=== PATIENT | female | born 1955 | race Caucasian/White ===

== ENCOUNTER → 2018-11-28 | Outpatient (CLI) | payer MEDICARE ==
[~2018-11-28] MED LIST: HYDR-3720 PO
--- NOTE | 2018-11-28 14:07 | Diagnostic Imaging Report ---
EXAMINATION: Right knee at 01:39 p.m. INDICATION: Knee pain. FINDINGS: Three views were obtained. There is no fracture, dislocation, or acute bony abnormality evident. However, there is fairly severe narrowing of the medial compartment of the knee joint and at least moderate narrowing of the patellofemoral space. The lateral compartment is well maintained. The soft tissues are unremarkable. IMPRESSION: 1. There is no evidence for an acute bony abnormality. 2. There is degenerative disease involving the knee joint with the medial compartment most severely affected. Dictated by: Dictated on workstation # [id number]
--- NOTE | 2018-11-28 15:37 | Diagnostic Imaging Report ---
EXAMINATION: Lumbar spine. INDICATION: Back pain. FINDINGS: AP, lateral, spot lateral, and both oblique views were obtained. There are no prior studies available for comparison. The lateral view shows that there is fairly severe narrowing of the disc spaces at L1-L2 and L2-L3 and moderate narrowing of the disc spaces at L3-L4. The L4-L5 and L5-S1 levels are fairly well maintained. There is no fracture or acute bony abnormality evident. There is no sign of a paraspinal mass. There is mild symmetrical sclerosis of the sacroiliac joints. IMPRESSION: 1. There is no evidence for an acute bony abnormality. 2. There is degenerative disc and bony disease involving the lumbar spine with the L1-L2 and L2-L3 levels the most severely affected. 3. If there is clinical concern regarding spinal stenosis or nerve root encroachment, then MRI will be recommended for additional evaluation. Dictated by: Dictated on workstation # [id number]
== END ==
LOC: RAD 13:11
PROVIDERS: ATTEND Nurse Practitioner Family
DX: M17.11 Unilateral primary osteoarthritis, right knee (principal); M51.36 Other intervertebral disc degeneration, lumbar region; M89.9 Disorder of bone, unspecified
CPT/HCPCS: 72110; 73562

== ENCOUNTER → 2018-12-13 | Outpatient (CLI) | payer MEDICARE ==
--- NOTE | 2018-12-13 11:47 | Diagnostic Imaging Report ---
INDICATION: Screening for osteoporosis. COMPARISON: None. FINDINGS: There are no prior studies available for comparison. The bone mineral density of hips and spine was measured. The T score for the spine is -2.7. This value does indicate osteoporosis. The T score for the left femoral neck is -2.2 and the total T score for the left hip is -1.6. These values indicate osteopenia. The T score for the right femoral neck is -2.1 and the total T score for the right hip is -1.8. These values also fall within the range of osteopenia. AP Spine L1-L4: [BMD (g/cm2): 0.878] [T-Score: -2.7] [Z-Score: -2.3] [BMD Previous: N/A] [BMD % Change: N/A] LT Hip Neck: [BMD (g/cm2): 0.733] [T-Score: -2.2] [Z-Score: -1.5] LT Hip Total: [BMD (g/cm2):0.802] [T-Score:-1.6] [Z-Score: -1.3] [BMD Previous: N/A] [BMD % Change: N/A] RT Hip Neck: [BMD (g/cm2):0.742] [T-Score:-2.1] [Z-Score:-1.4] RT Hip Total: [BMD (g/cm2):0.775] [T-score:-1.8] [Z-Score:-1.5] [BMD Previous:N/A] [BMD % Change:N/A] *Indicates significant change from prior examination based on 95% confidence level. World Health Organization criteria for BMD interpretation classify patients as Normal (T-score at or above -1.0), Osteopenic (T-score between -1.0 and -2.5) or Osteoporotic (T-score at or below -2.5). LIMITATIONS AND MODIFICATION: None. FRACTURE RISK (FRAX SCORE): The ten year probability of (%): Major Osteoporotic Fracture: [9.5] Hip Fracture: [1.5] IMPRESSION: 1. The bone mineral density of the spine falls within the range of osteoporosis. The bone mineral density of hips indicates osteopenia. 2. 3. See below National Osteoporosis Foundation guidelines on when to potentially initiate pharmacologic therapy. Based on the National Osteoporosis Foundation Guidelines, pharmacologic treatment should be initiated in any of the following, unless clinical conditions suggest otherwise: * Any patient with prior fragility fracture of the hip or vertebrae. A spine fracture indicates 5X risk for subsequent spine fracture and 2X risk for subsequent hip fracture. * Osteoporosis (T-score <-2.5). * Postmenopausal women and men age 50 and older with low bone mass/osteopenia (T-score between -1.0 and -2.5) by DXA and 10-year major osteoporotic fracture greater than 20% or a 10-year probability of hip fracture greater than 3%. These fracture risks are supplied above in the FRAX score, if applicable. * Clinician judgement and/or patient preferences may indicate treatment for people with 10-year fracture probabilities above or below these levels. Dictated by: Dictated on workstation # [id number]
== END ==
LOC: RAD 10:40
PROVIDERS: ATTEND Nurse Practitioner Family
DX: Z13.820 Encounter for screening for osteoporosis (principal); M81.0 Age-related osteoporosis without current pathological fracture; M85.89 Other specified disorders of bone density and structure, multiple sites
CPT/HCPCS: 77080

== ENCOUNTER 2019-04-28 13:38 | Outpatient (RCR) | payer MEDICARE | END 2019-04-28 14:39 | disposition home or self-care (01) | PROVIDERS: ATTEND Orthopaedic Surgery | DX: Z47.1 Aftercare following joint replacement surgery (principal); Z96.651 Presence of right artificial knee joint; M81.0 Age-related osteoporosis without current pathological fracture ==